=== PATIENT | female | born 1985 | race Caucasian/White ===

== ENCOUNTER 2016-12-18 10:17 | Emergency (ER) | payer MEDICAID ==
[~2016-12-18 10:17] MED LIST: CIPR500T94 PO
[2016-12-18] MEDS ORDERED: PENI500T PO (10:59)
--- NOTE | 2016-12-18 10:59 | PHYS DOC ---
Past History Past Medical History: Ovarian Cyst, UTI Past Surgical History: No Surgical History Alcohol Use: None Drug Use: None Adult General Chief Complaint Chief Complaint: DENTAL PROBLEM HPI HPI Patient is a 31 year old female who presents with dental pain. Patient reports 2 day history of severe left lower dental pain. She denies fevers or chills, vomiting, abscess. Took her own Skykomish at home which seemed to help with that was the left pills she had. She does not currently have a dentist. She took a home test which was positive, believes she is about 12 weeks . No abdominal pain or vaginal bleeding. She feels nauseated & requests a prescription for zofran. Review of Systems Review of Systems Constitutional: Denies fever or chills HENT: Denies nasal congestion or sore throat , reports dental pain Respiratory: Denies cough or shortness of breath Cardiovascular: Denies chest pain GI: Denies abdominal pain, nausea, vomiting Musculoskeletal: Denies back pain or joint pain Integument: Denies rash Neurologic: Denies headache Current Medications Current Medications Current Medications Medications (Trade) Dose Ordered Sig/Litzy Start Time Stop Time Status Last Admin Dose Admin Acetaminophen/ Hydrocodone Bitart (Lortab 5/325) 2 tab 1X ONCE 12/18/16 11:00 12/18/16 11:01 UNV Allergies Allergies Allergies Coded Allergies Type Severity Reaction Last Updated Verified Iodine and Iodide Containing Produc Allergy Unknown 07/24/16 Yes Physical Exam Physical Exam Constitutional: Well developed, well nourished, no acute distress, non-toxic appearance. HENT: Normocephalic, atraumatic, bilateral external ears normal, TMs clear bilaterally, oropharynx moist, nose normal. diffuse dental decay. tooth #20 severe decay minimal gingival erythema, no abscess, no jaw swelling or trismus. Eyes: conjunctiva normal, no discharge. Cardiovascular: no edema. Lungs & Thorax: no respiratory distress. Abdomen: nondistended. Skin: Warm, dry, no erythema, no rash. Extremities: No deformity Neurologic: Alert and oriented X 3 EKG EKG [] Radiology/Procedures Radiology/Procedures [] Course & Med Decision Making Course & Med Decision Making Pertinent Labs and Imaging studies reviewed. (See chart for details) The patient presents with dental pain. Gave prescriptions for penicillin and Skykomish. Recommend ice, Skykomish for severe pain, zofran for nausea. No drinking alcohol or driving while taking Skykom[place]. No complaints related to . Follow-up as soon as possible with a dentist. Follow up with Dr. Barrett in the OB clinic to establish care. Return to the emergency department for difficulty breathing or swallowing, severe abdominal pain, uncontrolled vomiting, heavy bleeding requiring greater than 1 pad per hour, any otherwise worsening condition. Discharged home in stable condition. [] Dragon Disclaimer Dragon Disclaimer This chart was dictated in whole or in part using Voice Recognition software in a busy, high-work load, and often noisy Emergency Department environment. It may contain unintended and wholly unrecognized errors or omissions. Departure Departure: Impression: Primary Impression: Pain, dental Disposition: HOME, SELF-CARE Condition: STABLE Referrals: [facility] (PCP) [facility] Patient Instructions: Dental Pain, [id number] Scripts Ondansetron (ZOFRAN ODT) 4 Mg Tab.rapdis 1 TAB SL Q8HRS, #10 TAB Prov: MEDINA BOYD MD 12/18/16 Hydrocodone Bit/Acetaminophen (NORCO 5-325 TABLET) 1 Each Tablet 1-2 TAB PO Q4-6HRS Y for SEVERE PAIN, #10 TAB Prov: MEDINA BOYD MD 12/18/16 Penicillin V Potassium (PENICILLIN V POTASSIUM) 500 Mg Tablet 1 TAB PO QID, #28 TAB Prov: MEDINA BOYD MD 12/18/16 MEDINA BOYD MD Dec 18, 2016 10:59
[2016-12-18] MEDS ORDERED: HYDROcodone/APAP 5/325MG 1 TAB TABLET PO ONE (11:00)
[2016-12-18] MEDS ORDERED: HYDR-971 PO (11:02)
[2016-12-18] MEDS ORDERED: ONDA4TAB10 SL (11:02)
[2016-12-18 11:10] VITALS: BP 112/67
== END 2016-12-18 11:10 | disposition home or self-care (01) ==
LOC: ER 10:17
DX: O99.611 Diseases of the digestive system complicating pregnancy, first trimester (principal); K08.89 Other specified disorders of teeth and supporting structures; O23.41 Unspecified infection of urinary tract in pregnancy, first trimester; Z3A.12 12 weeks gestation of pregnancy; Z91.041 Radiographic dye allergy status
CPT/HCPCS: 99283

== ENCOUNTER → 2017-05-07 | Emergency (ER) | payer MEDICAID, OTHER ==
[~2017-05-07] VITALS: Ht 170.2 cm; Wt 72.6 kg
[~2017-05-07] MED LIST changes: +AMOX500C PO; +AMOXICILLIN 250 MG CAPSULE PO ONE; +HYDR-971 PO; +HYDROcodone/APAP 5/325MG 1 TAB TABLET PO ONE; +ONDA4TAB10 SL; +PENI500T PO
[2017-05-07 17:35] VITALS: BP 117/73
--- NOTE | 2017-05-07 18:17 | PHYS DOC ---
Past History Past Medical History: Endometriosis, Ovarian Cyst, UTI Past Surgical History: No Surgical History Alcohol Use: None Drug Use: None Adult General Chief Complaint Chief Complaint: DENTAL PROBLEM HPI HPI Patient is a 32-year-old female who is approximately 31 weeks presents here today secondary to dental pain. Patient reports she called her OB doctor there were unable see her she is having a lot of discomfort to her right upper incisors. Patient denies any other symptomatology. Patient has any fevers shakes chills nausea vomiting diarrhea. Patient denies any related complaints. Patient reports she will see her dentist this week. Review of systems: Constitutional: Denies fever or chills Eyes: Denies change in visual acuity, redness, or eye pain HENT: Denies nasal congestion or sore throat All other systems were reviewed and found to be within normal limits, except as documented in this note. Physical exam Constitutional: Well developed, well nourished, no acute distress, non-toxic appearance. HENT: Normocephalic, atraumatic, bilateral external ears normal, oropharynx moist, no oral exudates, nose normal. Eyes: PERRLA, EOMI, conjunctiva normal, no discharge. Neck: Normal range of motion, no tenderness, supple, no stridor. Cardiovascular:Heart rate regular rhythm, Lungs & Thorax: Bilateral breath sounds clear to auscultation Abdomen: Nondistended. Skin: Warm, dry, no erythema, no rash. Back: No tenderness, no CVA tenderness. Extremities: No tenderness, no cyanosis, no clubbing, ROM intact, no edema. Neurologic: Alert and oriented X 3, normal motor function, normal sensory function, no focal deficits noted. Psychologic: Affect normal, judgement normal, mood normal. ER physical exam is significant for: Dental caries diffusely throughout her T. No abscess. No trismus. Assessment and plan: 1. 32-year-old female who presents today secondary to dental caries and dental pain. Patient is . Patient be given a prescription for amoxicillin as well as for 8 Lortab associated able see her primary care physician to assist her with long-term management of her pain. I have discussed with the patient my concern was giving narcotics to a female who is this far along in her . Patient understands and is wanting to take the risk and secondary to severe pain that she's having. Allergies Allergies Allergies Coded Allergies Type Severity Reaction Last Updated Verified Iodine and Iodide Containing Produc Allergy Unknown 07/24/16 Yes Current Patient Data Vital Signs Vital Signs Date Time Temp Pulse Resp B/P (MAP) Pulse Ox O2 Delivery O2 Flow Rate FiO2 05/07/17 17:35 97.8 97 20 97 Room Air EKG EKG [] Radiology/Procedures Radiology/Procedures [] Course & Med Decision Making Course & Med Decision Making Pertinent Labs and Imaging studies reviewed. (See chart for details) [] Dragon Disclaimer Dragon Disclaimer This electronic medical record was generated, in whole or in part, using a voice recognition dictation system. Departure Departure: Impression: Primary Impression: Dental caries Additional Impression: Disposition: HOME, SELF-CARE Condition: IMPROVED Referrals: NON,STAFF (PCP) Patient Instructions: Dental Caries Additional Instructions: See your dentist kishor. We will bridge you with a couple pain pills and antibiotics for your dental pain until you see your OB doctor. All further non emergent dental pain issues MUST be managed by your OB doctor and dentist. Scripts Hydrocodone Bit/Acetaminophen (NORCO 5-325 TABLET) 1 Each Tablet 1 TAB PO PRN Q6HRS Y for PAIN, #8 TAB 0 Refills Prov: VIVI HAM MD 05/07/17 Amoxicillin (AMOXICILLIN) 500 Mg Capsule 1 CAP PO TID, #30 CAP Prov: VIVI HAM MD 05/07/17 Problem Qualifiers VIVI HAM MD May 07, 2017 18:17
== END | disposition home or self-care (01) ==
LOC: ER 17:35
DX: O99.613 Diseases of the digestive system complicating pregnancy, third trimester (principal); K02.9 Dental caries, unspecified; Z3A.31 31 weeks gestation of pregnancy; Z91.041 Radiographic dye allergy status
CPT/HCPCS: 99283

== ENCOUNTER 2019-02-24 14:08 | Emergency (ER) | payer OTHER ==
[~2019-02-24] VITALS: Ht 167.6 cm; Wt 54.4 kg
[~2019-02-24 14:08] MED LIST changes: -AMOXICILLIN 250 MG CAPSULE PO ONE; +HYDR-3165 PO; -HYDR-971 PO; -HYDROcodone/APAP 5/325MG 1 TAB TABLET PO ONE
[2019-02-24] MEDS ORDERED: GLUCAGON,HUMAN RECOMBINANT 1 MG KIT. IM ONE (14:30)
[2019-02-24] MEDS ORDERED: IV NORMAL SALINE 1,000ML 1,000 ML IV ONE (14:30)
--- NOTE | 2019-02-24 14:46 | PHYS DOC ---
Past History Past Medical History: Endometriosis, Ovarian Cyst, UTI Past Surgical History: No Surgical History Alcohol Use: None Drug Use: None Adult General Chief Complaint Chief Complaint: NAUSEA/VOMITING/DIARRHEA HPI HPI 33-year-old female presents to the emergency Department with complaints of nausea, vomiting. She states she felt like something was in her throat as night, she was having beans and ham. She has been able to swallow however has been pers istently nauseous. Patient states she is recently seen her primary care physician with ultrasound performed revealing no acute process, she does have underlying diagnosis of endometriosis. Nothing makes her nausea or vomiting worse. She has been able to tolerate some liquids Review of Systems Review of Systems Constitutional: Denies fever or chills [] Respiratory: Denies cough or shortness of breath [] Cardiovascular: No additional information not addressed in HPI [] GI: Nausea and vomiting Musculoskeletal: Denies back pain or joint pain [] Neurologic: Denies headache, focal weakness or sensory changes [] All other systems were reviewed and found to be within normal limits, except as documented in this note. Current Medications Current Medications Current Medications Medications (Trade) Dose Ordered Sig/Litzy Start Time Stop Time Status Last Admin Dose Admin Glucagon (Glucagen Kit) 1 mg 1X ONCE 02/24/19 14:30 02/24/19 14:31 DC Ondansetron HCl (Zofran) 4 mg 1X ONCE 02/24/19 14:45 02/24/19 14:46 UNV Sodium Chloride 1,000 ml @ 1,000 mls/hr 1X ONCE 02/24/19 14:30 02/24/19 15:29 Allergies Allergies Allergies Coded Allergies Type Severity Reaction Last Updated Verified Iodine and Iodide Containing Produc Allergy Unknown 07/24/16 Yes Physical Exam Physical Exam Constitutional: Well developed, well nourished, no acute distress, non-toxic appearance. [] HENT: Normocephalic, atraumatic, bilateral external ears normal, oropharynx moist, no oral exudates, nose normal. [] Eyes: PERRLA, EOMI, conjunctiva normal, no discharge. [] Cardiovascular: Mild tachycardia, no murmur Lungs & Thorax: Bilateral breath sounds clear to auscultation [] Abdomen: Soft, nontender to palpation, no masses no pulsatile mass Skin: Warm, dry, no erythema, no rash. [] Back: No tenderness, no CVA tenderness. [] Extremities: No tenderness, no cyanosis, no clubbing, ROM intact, no edema. [] Neurologic: Alert and oriented X 3, no focal deficits noted. [] Psychologic: Affect normal, judgement normal, mood normal. [] Current Patient Data Vital Signs Vital Signs Date Time Temp Pulse Resp B/P (MAP) Pulse Ox O2 Delivery O2 Flow Rate FiO2 02/24/19 14:09 98.0 100 18 100 Room Air Lab Results Laboratory Tests Test 02/24/19 14:31 02/24/19 15:16 White Blood Count 8.2 x10^3/uL Red Blood Count 4.46 x10^6/uL Hemoglobin 13.4 g/dL Hematocrit 41.2 % Mean Corpuscular Volume 92 fL Mean Corpuscular Hemoglobin 30 pg Mean Corpuscular Hemoglobin Concent 33 g/dL Red Cell Distribution Width 13.8 % Platelet Count 347 x10^3/uL Neutrophils (%) (Auto) 70 % Lymphocytes (%) (Auto) 19 % Monocytes (%) (Auto) 8 % Eosinophils (%) (Auto) 2 % Basophils (%) (Auto) 1 % Neutrophils # (Auto) 5.8 x10^3uL Lymphocytes # (Auto) 1.5 x10^3/uL Monocytes # (Auto) 0.7 x10^3/uL Eosinophils # (Auto) 0.2 x10^3/uL Basophils # (Auto) 0.1 x10^3/uL Sodium Level 143 mmol/L Potassium Level 3.7 mmol/L Chloride Level 106 mmol/L Carbon Dioxide Level 28 mmol/L Anion Gap 9 Blood Urea Nitrogen 16 mg/dL Creatinine 0.8 mg/dL Estimated GFR (Cockcroft-Gault) 83.1 BUN/Creatinine Ratio 20 Glucose Level 89 mg/dL Calcium Level 8.8 mg/dL Total Bilirubin 0.4 mg/dL Aspartate Amino Transf (AST/SGOT) 14 U/L Alanine Aminotransferase (ALT/SGPT) 15 U/L Alkaline Phosphatase 56 U/L Total Protein 7.4 g/dL Albumin 4.0 g/dL Albumin/Globulin Ratio 1.2 Bedside Urine HCG, Qualitative hcg negative Current Medications Medications (Trade) Dose Ordered Sig/Litzy Route PRN Reason Start Time Stop Time Status Last Admin Dose Admin Glucagon (Glucagen Kit) 1 mg 1X ONCE IM 02/24/19 14:30 02/24/19 14:31 DC 02/24/19 14:50 Sodium Chloride 1,000 ml @ 1,000 mls/hr 1X ONCE IV 02/24/19 14:30 02/24/19 15:29 DC 02/24/19 14:50 Ondansetron HCl (Zofran) 4 mg 1X ONCE IV 02/24/19 15:00 02/24/19 15:01 DC 02/24/19 15:06 EKG EKG [] Radiology/Procedures Radiology/Procedures [] Course & Med Decision Making Course & Med Decision Making Pertinent Labs and Imaging studies reviewed. (See chart for details) Patient presents to the emergency department with complaints of nausea and vomiting, she states she feels like she has something stuck in her throat she's felt like that since last evening. She states she is able to swallow at times however has persistently had more difficulty. Despite glucagon, Zofran 8 mg, patient continues to have nausea with vomiting. Concern for fluid bolus and inability to improve vomiting and pain we'll plan for transfer to [facility]. GI consultation requested (Dr. Ramos), ask for hospitalist to admit. Patient did vomit multiple times in the ER. She was unable to tolerate po. Dragon Disclaimer Dragon Disclaimer This electronic medical record was generated, in whole or in part, using a voice recognition dictation system. Departure Departure: Impression: Primary Impression: Bolus impaction of digestive tract Additional Impression: Nausea & vomiting Disposition: 05 TRANSFER OTHER Admitting Physician: Other (HIMS) Condition: STABLE Referrals: ANGEL GONZALEZ (PCP) Problem Qualifiers ANNI MICHAUD MD Feb 24, 2019 14:46
[2019-02-24 14:56] LABS: BASO # 0.1 x10^3/uL (0.0-0.2); BASO % 1 % (0-3); EOS # 0.2 x10^3/uL (0.0-0.7); EOS % 2 % (0-3); HEMATOCRIT 41.2 % (36.0-47.0); HEMOGLOBIN 13.4 g/dL (12.0-15.5); LYMPH # 1.5 x10^3/uL (1.0-4.8); LYMPH % 19 % (24-48); MEAN CORPUSCULAR HEMOGLOBIN 30 pg (25-35); MEAN CORPUSCULAR HGB CONC 33 g/dL (31-37); MEAN CORPUSCULAR VOLUME 92 fL (79-100); MONO # 0.7 x10^3/uL (0.0-1.1); MONO % 8 % (0-9); NEUT # 5.8 x10^3uL (1.8-7.7); NEUT % 70 % (31-73); PLATELET COUNT 347 x10^3/uL (140-400); RED BLOOD COUNT 4.46 x10^6/uL (3.50-5.40); RED CELL DISTRIBUTION WIDTH 13.8 % (11.5-14.5); WHITE BLOOD COUNT 8.2 x10^3/uL (4.0-11.0)
[2019-02-24] MEDS ORDERED: ONDANSETRON PF 4 MG/2 ML VIAL. IV ONE ×2 (15:00→18:45)
[2019-02-24 15:04] LABS: ALBUMIN/GLOBULIN RATIO 1.2 (1.0-1.7); CALCIUM 8.8 mg/dL (8.5-10.1); CREATININE 0.8 mg/dL (0.6-1.0); GFR 83.1; POTASSIUM 3.7 mmol/L (3.5-5.1); TOTAL BILIRUBIN 0.4 mg/dL (0.2-1.0); TOTAL PROTEIN 7.4 g/dL (6.4-8.2)
[2019-02-24 15:56] LABS: BACTERIA,URINE 0 /HPF (0-FEW); BILIRUBIN,URINE NEG (NEG); CLARITY,URINE HAZY; COLOR,URINE YELLOW; GLUCOSE,URINE NEG (NEG); NITRITE,URINE NEG (NEG); RBC,URINE TNTC /HPF (0-2); SQUAMOUS EPITHELIAL CELL,UR OCC /LPF; UROBILINOGEN,URINE 1 mg/dL (0.2 mg/dL)
[2019-02-24 18:30] VITALS: BP 123/78
== END 2019-02-24 18:40 | disposition short-term general hospital (02) ==
LOC: ER 14:08
DX: K56.49 Other impaction of intestine (principal); R11.2 Nausea with vomiting, unspecified
CPT/HCPCS: 36415; 80053; 81001; 81025; 85025; 96361; 96372; 96374; 99285; J1610; J2405; J7030